=== PATIENT | female | born 1995 | race Caucasian/White ===

== ENCOUNTER 2021-03-16 18:24 | Emergency (ER) | payer OTHER ==
[~2021-03-16 18:24] MED LIST: BUSPIRONE HCL5 MG PO; COLACE100 MG PO; DELSYM30 MG/5 ML PO; FLONASE 0.05% N16 GM; IBU600 MG PO; IBUPROFEN600 MG PO; K-DUR TAB 20 M20 MEQ PO; KEFLEX CAP 500500 MG PO; LODINE CAP 300300 MG PO; MELOXICAM15 MG PO; NORCO 5-325 TA1 EACH PO; OMNICEF 300 MG300 MG PO; PRENATAL VITAM1 EAC8 PO; PROTONIX40 MG PO; SUDAFED 60 MG T60 MG PO; ZOFRAN4 MG PO; ZYRTEC10 MG PO
[2021-03-16 19:41] LABS: HEMOGLOBIN 11.6 gm/dl (12.3-15.3); RED BLOOD COUNT 3.63 M/UL (4.00-5.10); WHITE BLOOD COUNT 7.2 K/UL (4.5-11.0)
[2021-03-16 20:01] LABS: BUN/CREATININE RATIO 9 (0-10)
== END 2021-03-16 22:25 | disposition home or self-care (01) ==
LOC: ER1 18:24
PROVIDERS: Emergency Medicine
DX: O99.512 Diseases of the respiratory system complicating pregnancy, second trimester (principal); U07.1 COVID-19; O99.282 Endocrine, nutritional and metabolic diseases complicating pregnancy, second trimester; E86.0 Dehydration; O99.012 Anemia complicating pregnancy, second trimester; Z3A.21 21 weeks gestation of pregnancy
CPT/HCPCS: 71045; 80053; 85025; 99284; J7030

== ENCOUNTER 2021-04-27 09:49 | Outpatient (CLI) | payer OTHER | END 2021-04-27 12:55 | disposition home or self-care (01) | LOC: GENOP 09:49 | DX: O99.891 Other specified diseases and conditions complicating pregnancy (principal); N89.8 Other specified noninflammatory disorders of vagina; O34.219 Maternal care for unspecified type scar from previous cesarean delivery; Z3A.27 27 weeks gestation of pregnancy; O36.0920 Maternal care for other rhesus isoimmunization, second trimester, not applicable or unspecified; O23.42 Unspecified infection of urinary tract in pregnancy, second trimester; N39.0 Urinary tract infection, site not specified; O99.342 Other mental disorders complicating pregnancy, second trimester; F32.A Depression, unspecified; F41.9 Anxiety disorder, unspecified | CPT/HCPCS: 81001; 82731; 83518; G0463 ==

== ENCOUNTER 2021-05-12 14:08 | Outpatient (CLI) | payer OTHER | END 2021-05-12 15:53 | disposition home or self-care (01) | LOC: GENOP 14:08 | DX: O99.891 Other specified diseases and conditions complicating pregnancy (principal); M54.50 Low back pain, unspecified; R19.7 Diarrhea, unspecified; R35.0 Frequency of micturition; Z3A.29 29 weeks gestation of pregnancy | CPT/HCPCS: 81001; G0463 ==

== ENCOUNTER 2021-06-04 20:18 | Outpatient (CLI) | payer OTHER | END 2021-06-04 23:47 | disposition home or self-care (01) | LOC: GENOP 20:18 | DX: O99.891 Other specified diseases and conditions complicating pregnancy (principal); M54.50 Low back pain, unspecified; R10.9 Unspecified abdominal pain; Z3A.33 33 weeks gestation of pregnancy | CPT/HCPCS: 81001; 96360; 96361; 96367; J0696 ==

== ENCOUNTER 2021-06-21 17:42 | Outpatient (CLI) | payer OTHER | END 2021-06-21 21:18 | disposition home or self-care (01) | LOC: GENOP 17:42 | DX: O36.8130 Decreased fetal movements, third trimester, not applicable or unspecified (principal); Z3A.36 36 weeks gestation of pregnancy; O47.03 False labor before 37 completed weeks of gestation, third trimester | CPT/HCPCS: 59025; 81001; 96360; 96361 ==

== ENCOUNTER 2021-06-26 22:07 | Outpatient (CLI) | payer OTHER | END 2021-06-27 04:27 | disposition home or self-care (01) | LOC: GENOP 22:07 | DX: O47.03 False labor before 37 completed weeks of gestation, third trimester (principal); Z3A.36 36 weeks gestation of pregnancy | CPT/HCPCS: 59025; 81001; 87086; 96360; 96361; 96367; 96374; J0696; J2300 ==

== ENCOUNTER 2021-07-08 16:26 | Emergency (ER) | payer OTHER | END 2021-07-08 18:30 | disposition home or self-care (01) | LOC: ER1 16:26 | DX: O99.891 Other specified diseases and conditions complicating pregnancy (principal); R42 Dizziness and giddiness; Z3A.38 38 weeks gestation of pregnancy | CPT/HCPCS: 99283 ==

== ENCOUNTER 2021-07-16 06:35 | Inpatient (IN) | payer OTHER ==
[~2021-07-16] VITALS: Ht 160 cm; Wt 77.1 kg
[2021-07-16 08:13] LABS: HEMOGLOBIN 10.3 gm/dl (12.3-15.3); RED BLOOD COUNT 3.35 M/UL (4.00-5.10); WHITE BLOOD COUNT 7.4 K/UL (4.5-11.0)
[2021-07-16] MEDS ORDERED: IBUPROFEN600 MG PO (14:07)
[2021-07-16] MEDS ORDERED: HYDROCODON-ACE1 EAC4 PO (14:07)
[2021-07-16] MEDS ORDERED: COLACE 100MG C100 MG PO (14:07)
[2021-07-17 04:49] LABS: HEMOGLOBIN 9.8 gm/dl (12.3-15.3)
[2021-07-18] MEDS ORDERED: LASIX20 MG PO (11:36)
== END 2021-07-18 16:00 | disposition home or self-care (01) | DRG 788 ==
LOC: OB 06:35
PROVIDERS: ADMIT Obstetrics & Gynecology
PROC: 4A1HXCZ Monitoring of Products of Conception, Cardiac Rate, External Approach (ICD-10-PCS; 2021-07-16)
PROC: 10D00Z1 Extraction of Products of Conception, Low, Open Approach (ICD-10-PCS; principal; 2021-07-16 07:30)
DX: O34.211 Maternal care for low transverse scar from previous cesarean delivery (principal); Z3A.39 39 weeks gestation of pregnancy; Z37.0 Single live birth; Z20.822 Contact with and (suspected) exposure to COVID-19
CPT/HCPCS: 36415; 36600; 81001; 82800; 85014; 85018; 85025; 86900; 86901; C9113; J0690; J1170; J2250; J2405; J2550; J2590; J2704; J3010; J7120; U0002